=== PATIENT | female | born 1985 | race Caucasian/White ===

== ENCOUNTER 2023-02-02 10:00 | Outpatient (RCR) | payer BC, SELFPAY | END 2023-02-02 10:49 | disposition home or self-care (01) | LOC: HO.PTCHIC 10:00 | PROVIDERS: PCP Physician Assistant Medical; Visit Provider Physician Assistant Medical | DX: R32 Unspecified urinary incontinence (principal) | CPT/HCPCS: 97110; 97112; 97140; 97162; 97535 ==